=== PATIENT | male | born 1945 | race Caucasian/White ===

== ENCOUNTER 2024-07-05 18:51 | Inpatient (IN) | payer MEDICARE ==
[2024-07-05] MEDS ORDERED: Calcium Chloride 1 GM/10 ML Abboject SYRINGE ONE (18:54)
[2024-07-05] MEDS ORDERED: Sodium Bicarb 50 MEQ/50 ML Abboject 8.4% SYRINGE ONE (18:54)
[2024-07-05] MEDS ORDERED: EPINEPHrine 1 MG/10 ML Abboject SYRINGE ONE (18:54)
[2024-07-05] MEDS ORDERED: Lidocaine 2% PF 100 mg/5 ml Syringe ONE (18:54)
[2024-07-05] MEDS ORDERED: Magnesium 2 GM/50 ML BAG (IN WATER) ONE (19:10)
[2024-07-05] MEDS ORDERED: fentaNYL 50 mcg/mL 1 mL Vial ONE ×2 (19:13→20:42)
[2024-07-05 19:23] LABS: Hematocrit 47.1 % (42.0-52.0); Hemoglobin 14.9 g/dL (14.0-18.0); Mean Corpuscular HGB CONC 31.6 g/dL (32.0-36.0); Mean Corpuscular Hemoglobin 30.5 pg (27.0-31.0); Mean Corpuscular Volume 96.3 fL (78.0-98.0); Mean Platelet Volume 11.2 fL (7.4-10.4); Platelet Count 172 10x3/uL (130-400); RBC Distribution Width 13.1 % (11.5-14.5); Red Blood Cell (RBC) Count 4.89 mill/uL (4.70-6.10)
[2024-07-05 19:36] LABS: INR-International Normal Ratio 1.3; PTT 51.9 sec (22.9-36.1); Prothrombin Time 16.2 sec (12.0-14.7)
[2024-07-05 19:37] LABS: Acetaminophen Less than 10 mcg/mL (Less than 10); Alcohol Less than 10.0 mg/dL (Less than 10); Salicylate Less than 8.0 mg/dL (Less than 8.0)
[2024-07-05 19:38] LABS: Actual Bicarbonate (HCO3a) 17.9 mEq/L (22-28); Analyzer IN Cardio ER; Base Excess (BEa) -9.4 mEq/L (-2.0 to +3.0); Calcium, Ionized (arterial) 1.43 mmol/L (1.12-1.30); Carboxyhemoglobin (COHb) 0.6 gm% (0.0-3.0); Hematocrit-ABG 43 % (42.0-52.0); Hemoglobin (Hb) 14.6 g/dL (14.0-18.0); pH, Arterial 7.228 (7.35-7.45)
[2024-07-05 19:42] LABS: Troponin I 0.031 ng/mL (< 0.028)
[2024-07-05 19:47] LABS: Band 2 % (5-11); Burr Cells SLIGHT = 2-5 cells HPF (0-1); Eosinophils 2 % (0-10); Lymphocytes 77 % (21-51); Monocytes 5 % (0-10); Neutrophil 12 % (42-75); Nucleated RBC (Manual Ct) 1 % (0); Platelet Adequacy Comment Platelets Normal; Reactive Lymphocytes 1 % (0-10); Smudge Cells 43.6 %
[2024-07-05 19:50] LABS: Puncture Site Right Brachial art
[2024-07-05 19:51] LABS: ALT (SGPT) 107 U/L (8-55); AST (SGOT) 99 U/L (5-34); Albumin 3.4 g/dL (3.4-4.8); Alkaline Phosphatase 73 U/L (40-110); Anion Gap 25 mmol/L (10-20); BUN (Urea Nitrogen) 13 mg/dL (8.4-25.7); Bilirubin, Total 0.4 mg/dL (0.2-1.2); Calc. Creatinine Clearance 0 mL/min (70-130); Calcium 9.1 mg/dL (7.8-10.44); Carbon Dioxide 24 mmol/L (23-31); Chloride 106 mmol/L (98-107); Estimated GFR 49; Globulin 2.4 g/dL (2.4-3.5); Glucose 202 mg/dL (83-110); Magnesium 2.6 mg/dL (1.6-2.6); Potassium 3.7 mmol/L (3.5-5.1); Protein, Total 5.8 g/dL (5.8-8.1); Sodium 151 mmol/L (136-145)
[2024-07-05] MEDS ORDERED: EPINEPHrine 4 MG in Dextrose 5% in Water 250 ML IV SCH (20:45)
[2024-07-05] MEDS ORDERED: Insulin Lispro 100 UNIT/ML 10 ML VIAL SC PRN (20:48)
[2024-07-05 21:15] LABS: Bilirubin Negative (Negative); Blood, Urine 3+ (Negative); CAUTI Indications for Culture Alt mental st,lethar; Clarity Turbid (Clear); Glucose, Urine (Dipstick) 100 mg/dL (Negative); Ketone, Urine Negative (Negative); Leukocyte Negative Leu/uL (Negative); Nitrite Negative (Negative); Protein, Urine (Dipstick) 300 mg/dL (Neg-Trace); RBC/HPF Greater than 50 HPF (0-3); Squamous Epithelial None Seen HPF (0-3); Urobilinogen Normal mg/dL (Less than 2); pH, Urine 6.5 (5.0-9.0)
[2024-07-05 21:16] LABS: Bacteria/HPF Rare-Few HPF (None Seen)
[2024-07-05 21:18] LABS: Urine Culture Reflex Yes Yes
[2024-07-05 21:19] LABS: Amphetamine Not Detected (NotDetected); Barbiturates Screen Not Detected (NotDetected); Benzodiazepine Screen Not Detected (NotDetected); Cocaine Metabolite Screen Not Detected (NotDetected); Methadone Not Detected (NotDetected); Methamphetamine Not Detected (NotDetected); Opiate Screen Not Detected (NotDetected); Oxycodone Screen Not Detected (NotDetected); Phencyclidine (PCP) Not Detected (NotDetected); THC/Cannabinoid Screen Not Detected (NotDetected); Tricyclic Screen Not Detected (NotDetected)
[2024-07-05 21:24] LABS: Magnesium 4.4 mg/dL (1.6-2.6); Phosphorus 10.9 mg/dL (2.3-4.7)
[2024-07-05 21:28] LABS: Hemoglobin A1c 5.9 % (4.0-6.0)
[2024-07-05] MEDS: Magnesium Sulfate In Water 4 GM in Premix 1 BAG IVPB SCH (22:40)
[2024-07-05] MEDS ORDERED: Propofol 1,000 MG/100 ML VIAL IV ONE (23:03)
[2024-07-05 23:23] VITALS: BMI 34.2
[2024-07-05] MEDS ORDERED: Electrolyte Replacement Protocol 1 EACH FS PRN (23:37)
[2024-07-06 00:42] LABS: Lactic Acid 4.45 mmol/L (0.5-2.2); Troponin I 5.919 ng/mL (< 0.028)
[2024-07-06 00:49] LABS: ALT (SGPT) 289 U/L (8-55); AST (SGOT) 362 U/L (5-34); Albumin 3.7 g/dL (3.4-4.8); Alkaline Phosphatase 99 U/L (40-110); Anion Gap 18 mmol/L (10-20); BUN (Urea Nitrogen) 19 mg/dL (8.4-25.7); Bilirubin, Total 0.9 mg/dL (0.2-1.2); Calc. Creatinine Clearance 50 mL/min (70-130); Calcium 10.3 mg/dL (7.8-10.44); Carbon Dioxide 22 mmol/L (23-31); Chloride 106 mmol/L (98-107); Estimated GFR 36; Globulin 2.2 g/dL (2.4-3.5); Glucose 343 mg/dL (83-110); Potassium 3.6 mmol/L (3.5-5.1); Protein, Total 5.9 g/dL (5.8-8.1); Sodium 142 mmol/L (136-145)
[2024-07-06] MEDS ORDERED: Lactated Ringer's 500 ML IV SCH (01:15)
[2024-07-06] MEDS ORDERED: Morphine 2 MG/ML VIAL SLOW IVP PRN (02:15)
[2024-07-06] MEDS ORDERED: Fentanyl BOLUS 250 ML IVPB PRN (02:15)
[2024-07-06] MEDS ORDERED: Propofol BOLUS 1,000 MG/100 ML VIAL IV PRN (02:15)
[2024-07-06] MEDS ORDERED: DISCONTINUE PREVIOUS NARCOTIC PAIN MEDICATIONS AND BENZODIAZEPINES FS SCH (02:15)
[2024-07-06 02:23] LABS: Troponin I 11.923 ng/mL (< 0.028)
[2024-07-06] MEDS: Amiodarone 450 MG in Dextrose 5% in Water 250 ML IVPB SCH (02:48)
[2024-07-06] MEDS: Ventilator Sedation Protocol 1 EACH FS ONE (02:48)
[2024-07-06] MEDS: Lorazepam 2 MG/ML VIAL ONE (02:48)
[2024-07-06 05:22] LABS: Hematocrit 47.1 % (42.0-52.0); Hemoglobin 15.1 g/dL (14.0-18.0); Mean Corpuscular HGB CONC 32.1 g/dL (32.0-36.0); Mean Corpuscular Hemoglobin 30.4 pg (27.0-31.0); Mean Platelet Volume 11.2 fL (7.4-10.4); Platelet Count 223 10x3/uL (130-400); RBC Distribution Width 13.2 % (11.5-14.5); Red Blood Cell (RBC) Count 4.96 mill/uL (4.70-6.10)
[2024-07-06 05:32] LABS: ALT (SGPT) 247 U/L (8-55); AST (SGOT) 284 U/L (5-34); Albumin 3.4 g/dL (3.4-4.8); Alkaline Phosphatase 79 U/L (40-110); Anion Gap 19 mmol/L (10-20); BUN (Urea Nitrogen) 22 mg/dL (8.4-25.7); Bilirubin, Total 1.1 mg/dL (0.2-1.2); Calc. Creatinine Clearance 40 mL/min (70-130); Carbon Dioxide 22 mmol/L (23-31); Chloride 105 mmol/L (98-107); Estimated GFR 28; Globulin 2.3 g/dL (2.4-3.5); Glucose 322 mg/dL (83-110); Magnesium 4.6 mg/dL (1.6-2.6); Potassium 3.4 mmol/L (3.5-5.1); Protein, Total 5.7 g/dL (5.8-8.1); Sodium 143 mmol/L (136-145)
[2024-07-06] MEDS: Insulin Lispro 100 UNIT/ML 10 ML VIAL SC PRN ×2 (05:56→11:50)
[2024-07-06 06:02] LABS: Band 36 % (5-11); Lymphocytes 3 % (21-51); Monocytes 8 % (0-10); Neutrophil 54 % (42-75); Platelet Adequacy Comment Platelets Normal; RBC Morphology Within Normal Limits
[2024-07-06] MEDS: Heparin 25,000 units/D5W 500 ML IVPB SCH (06:10)
[2024-07-06] MEDS: Heparin 10,000 UNITS/ 10 ML VIAL SLOW IVP SCH (06:18)
[2024-07-06] MEDS: Potassium Chloride 20 MEQ in Premix 1 BAG IVPB SCH (08:13)
[2024-07-06] MEDS: Pantoprazole 40 MG VIAL IVP SCH (08:13)
[2024-07-06 08:28] LABS: Troponin I 13.829 ng/mL (< 0.028)
[2024-07-06 08:30] LABS: Actual Bicarbonate (HCO3a) 17.3 mEq/L (22-28); Base Excess (BEa) -6.8 mEq/L (-2.0 to +3.0); CO2 Tension 31.2 mmHg (35.0-45.0); Calcium, Ionized (arterial) 1.26 mmol/L (1.12-1.30); Carboxyhemoglobin (COHb) 1.5 gm% (0.0-3.0); Hematocrit-ABG 46 % (42.0-52.0); Hemoglobin (Hb) 15.7 g/dL (14.0-18.0); O2 Tension (PaO2), arterial 62.1 mmHg (> 60.0); Potassium - ABG Lab 3.55 mmol/L (3.70-5.30); pH, Arterial 7.361 (7.35-7.45)
[2024-07-06 08:34] LABS: Puncture Site Left Brachial artery
[2024-07-06] MEDS ORDERED: Enoxaparin 40 MG (0.4 mL) SYRINGE SC SCH (09:00)
[2024-07-06] MEDS ORDERED: Heparin 5,000 UNITS/ML VIAL SC SCH (09:00)
[2024-07-06] MEDS: FLU (Fluad Triv) TS24-25 (65UP)/MF59C/PF 45 MCG/0.5 ML Syringe IM ONE (10:23)
[2024-07-06] MEDS: Aspirin 81 mg Enteric Coated Tablet PO SCH (10:23)
[2024-07-06] MEDS: Atorvastatin Calcium 40 MG TAB PO SCH (10:23)
[2024-07-06] MEDS: NOREPINEPHRINE 8 MG/250 ML-D5W 250 ML IVPB SCH (10:30)
[2024-07-06] MEDS: Lactated Ringer's 1,000 ML IV SCH (14:06)
[2024-07-06 15:14] LABS: Potassium 4.2 mmol/L (3.5-5.1)
[2024-07-06 16:10] LABS: PTT 206.8 sec (22.9-36.1)
[2024-07-07] MEDS: Propofol 1,000 MG/100 ML VIAL IV PRN (00:09)
[2024-07-07] MEDS: Fentanyl CADD 100 ML IV SCH (01:39)
[2024-07-07] MEDS: Lidocaine 2 gm/D5W 500 ml 500 ML IVPB SCH (03:26)
[2024-07-07 04:35] LABS: Hematocrit 42.3 % (42.0-52.0); Mean Corpuscular HGB CONC 33.1 g/dL (32.0-36.0); Mean Corpuscular Hemoglobin 30.4 pg (27.0-31.0); Mean Corpuscular Volume 91.8 fL (78.0-98.0); Mean Platelet Volume 11.7 fL (7.4-10.4); Platelet Count 192 10x3/uL (130-400); RBC Distribution Width 13.7 % (11.5-14.5); Red Blood Cell (RBC) Count 4.61 mill/uL (4.70-6.10)
[2024-07-07 04:56] LABS: ALT (SGPT) 142 U/L (8-55); AST (SGOT) 101 U/L (5-34); Albumin 2.6 g/dL (3.4-4.8); Alkaline Phosphatase 59 U/L (40-110); Anion Gap 16 mmol/L (10-20); BUN (Urea Nitrogen) 34 mg/dL (8.4-25.7); Bilirubin, Total 0.7 mg/dL (0.2-1.2); Calc. Creatinine Clearance 37 mL/min (70-130); Calcium 8.8 mg/dL (7.8-10.44); Carbon Dioxide 22 mmol/L (23-31); Chloride 100 mmol/L (98-107); Estimated GFR 25; Globulin 2.3 g/dL (2.4-3.5); Glucose 202 mg/dL (83-110); Magnesium 2.7 mg/dL (1.6-2.6); Phosphorus 2.4 mg/dL (2.3-4.7); Protein, Total 4.9 g/dL (5.8-8.1); Sodium 134 mmol/L (136-145)
[2024-07-07 05:26] LABS: Band 20 % (5-11); Burr Cells SLIGHT = 2-5 cells HPF (0-1); Lymphocytes 15 % (21-51); Metamyelocyte 2 % (0-0); Microcytosis SLIGHT = 6-15 cells HPF (0-5); Monocytes 6 % (0-10); Neutrophil 57 % (42-75); Ovalocytes SLIGHT = 2-5 cells HPF (0-1); Platelet Adequacy Comment Platelets Normal; Poikilocytosis SLIGHT = 6-15 cells HPF (0-5)
[2024-07-07] MEDS: Aspirin 81 mg Enteric Coated Tablet PO SCH (08:57)
[2024-07-07] MEDS: Atorvastatin Calcium 40 MG TAB PO SCH (08:57)
[2024-07-07] MEDS: Acetaminophen 650 MG Suppository PR PRN (09:03)
[2024-07-07] MEDS ORDERED: Acetaminophen 500 MG TAB PO PRN (09:57)
[2024-07-07] MEDS ORDERED: Acetaminophen 500 MG TAB PO SCH (10:00)
[2024-07-07 11:05] LABS: Lactic Acid 3.13 mmol/L (0.5-2.2)
[2024-07-07] MEDS: Furosemide 40 MG (4 mL) VIAL SLOW IVP SCH (12:18)
[2024-07-07 12:39] VITALS: BMI 34.2
[2024-07-07 12:47] LABS: Troponin I 3.853 ng/mL (< 0.028)
[2024-07-07] MEDS ORDERED: Furosemide 40 MG (4 mL) VIAL SLOW IVP SCH (21:00)
[2024-07-08] MEDS: Acetaminophen 500 MG TAB PER TUBE PRN (00:31)
[2024-07-08 04:37] LABS: Hemoglobin 12.8 g/dL (14.0-18.0); Mean Corpuscular HGB CONC 32.8 g/dL (32.0-36.0); Mean Corpuscular Hemoglobin 30.5 pg (27.0-31.0); Mean Corpuscular Volume 92.9 fL (78.0-98.0); Mean Platelet Volume 10.8 fL (7.4-10.4); Platelet Count 144 10x3/uL (130-400); RBC Distribution Width 13.6 % (11.5-14.5)
[2024-07-08 04:52] LABS: ALT (SGPT) 81 U/L (8-55); AST (SGOT) 54 U/L (5-34); Albumin 2.1 g/dL (3.4-4.8); Alkaline Phosphatase 44 U/L (40-110); Anion Gap 15 mmol/L (10-20); BUN (Urea Nitrogen) 43 mg/dL (8.4-25.7); Bilirubin, Total 1.2 mg/dL (0.2-1.2); Calc. Creatinine Clearance 34 mL/min (70-130); Calcium 7.7 mg/dL (7.8-10.44); Carbon Dioxide 22 mmol/L (23-31); Chloride 98 mmol/L (98-107); Estimated GFR 23; Globulin 2.4 g/dL (2.4-3.5); Glucose 220 mg/dL (83-110); Magnesium 2.3 mg/dL (1.6-2.6); Phosphorus 3.6 mg/dL (2.3-4.7); Potassium 3.7 mmol/L (3.5-5.1); Protein, Total 4.5 g/dL (5.8-8.1); Sodium 131 mmol/L (136-145)
[2024-07-08 05:07] LABS: Band 33 % (5-11); Burr Cells SLIGHT = 2-5 cells HPF (0-1); Dohle Bodies SLIGHT; Large Platelets 1.8 % (0-5); Lymphocytes 28 % (21-51); Metamyelocyte 5 % (0-0); Monocytes 6 % (0-10); Myelocyte 5 % (0-0); Neutrophil 23 % (42-75); Ovalocytes SLIGHT = 2-5 cells HPF (0-1); Platelet Adequacy Comment Platelets Normal; Poikilocytosis SLIGHT = 6-15 cells HPF (0-5); Polychromasia SLIGHT = 2-3 cells HPF (0-2); Schistocytes SLIGHT = 2-5 cells HPF (0-1); Target Cells SLIGHT = 2-5 cells HPF (0-1); Toxic Granulation SLIGHT; Vacuoles SLIGHT
[2024-07-08] MEDS: Heparin 5,000 UNITS/ML VIAL SC SCH (08:34)
[2024-07-08 09:30] LABS: Lactic Acid 3.39 mmol/L (0.5-2.2)
[2024-07-08] MEDS ORDERED: Vasopressin 20 UNITS in Sodium Chloride 0.9% 50 ML IV PRN (09:38)
[2024-07-08] MEDS: Amiodarone 200 MG TAB PO SCH (10:19)
[2024-07-08] MEDS: Vasopressin In 0.9 % NaCl 40 UNIT in Premix 1 BAG IV SCH (11:50)
[2024-07-08] MEDS: Lorazepam 2 MG/ML VIAL SLOW IVP PRN (12:53)
[2024-07-08 17:16] LABS: Base Excess (BEa) -1.4 mEq/L (-2.0 to +3.0); CO2 Tension 37.5 mmHg (35.0-45.0); Calcium, Ionized (arterial) 1.09 mmol/L (1.12-1.30); Carboxyhemoglobin (COHb) 1.1 gm% (0.0-3.0); Hematocrit-ABG 41 % (42.0-52.0); Hemoglobin (Hb) 14.1 g/dL (14.0-18.0); Potassium - ABG Lab 3.97 mmol/L (3.70-5.30); pH, Arterial 7.405 (7.35-7.45)
[2024-07-08 17:20] LABS: ALV-art Gradient 392.425 mmHg (0-20); O2 Tension (PaO2), arterial 59.8 mmHg (> 60.0); Puncture Site Right Radial artery
[2024-07-08] MEDS: Furosemide 20 MG (2 mL) VIAL SLOW IVP SCH (17:53)
[2024-07-08] MEDS: Senokot S 8.6-50 MG TAB PO SCH (19:23)
[2024-07-09] MEDS: DOBUTamine 500 mg/250 ml 250 ML ONE (00:25)
[2024-07-09 04:09] LABS: Hemoglobin 12.6 g/dL (14.0-18.0); Mean Corpuscular HGB CONC 33.2 g/dL (32.0-36.0); Mean Corpuscular Hemoglobin 29.8 pg (27.0-31.0); Mean Corpuscular Volume 89.8 fL (78.0-98.0); Mean Platelet Volume 11.7 fL (7.4-10.4); Platelet Count 140 10x3/uL (130-400); RBC Distribution Width 13.6 % (11.5-14.5); Red Blood Cell (RBC) Count 4.23 mill/uL (4.70-6.10)
[2024-07-09 04:22] LABS: ALT (SGPT) 64 U/L (8-55); AST (SGOT) 43 U/L (5-34); Alkaline Phosphatase 42 U/L (40-110); Anion Gap 16 mmol/L (10-20); BUN (Urea Nitrogen) 52 mg/dL (8.4-25.7); Bilirubin, Total 1.3 mg/dL (0.2-1.2); Calc. Creatinine Clearance 37 mL/min (70-130); Calcium 8.3 mg/dL (7.8-10.44); Carbon Dioxide 23 mmol/L (23-31); Chloride 97 mmol/L (98-107); Estimated GFR 25; Globulin 3.4 g/dL (2.4-3.5); Glucose 224 mg/dL (83-110); Potassium 3.8 mmol/L (3.5-5.1); Protein, Total 5.4 g/dL (5.8-8.1); Sodium 132 mmol/L (136-145)
[2024-07-09 04:33] LABS: Band 41 % (5-11); Burr Cells SLIGHT = 2-5 cells HPF (0-1); Dohle Bodies SLIGHT; Large Platelets 4.3 % (0-5); Lymphocytes 15 % (21-51); Metamyelocyte 17 % (0-0); Microcytosis SLIGHT = 6-15 cells HPF (0-5); Monocytes 4 % (0-10); Myelocyte 1 % (0-0); Neutrophil 22 % (42-75); Nucleated RBC (Manual Ct) 2 % (0); Ovalocytes SLIGHT = 2-5 cells HPF (0-1); Platelet Adequacy Comment Platelets Decreased; Poikilocytosis MODERATE=16-30 cells HPF (0-5); Polychromasia SLIGHT = 2-3 cells HPF (0-2); Reflex for Review?? YES; Toxic Granulation MODERATE; Vacuoles SLIGHT
[2024-07-09] MEDS: Polyethylene Glycol 3350 17 GM Packet PER TUBE SCH (08:42)
[2024-07-09] MEDS: Furosemide 20 MG (2 mL) VIAL SLOW IVP SCH (12:00)
[2024-07-09 12:54] LABS: Magnesium 2.6 mg/dL (1.6-2.6)
[2024-07-10 04:45] LABS: ALT (SGPT) 18 U/L (8-55); AST (SGOT) 34 U/L (5-34); Albumin 1.8 g/dL (3.4-4.8); Alkaline Phosphatase 37 U/L (40-110); Anion Gap 13 mmol/L (10-20); BUN (Urea Nitrogen) 19 mg/dL (8.4-25.7); Bilirubin, Total 1.3 mg/dL (0.2-1.2); Calc. Creatinine Clearance 85 mL/min (70-130); Calcium 7.4 mg/dL (7.8-10.44); Carbon Dioxide 23 mmol/L (23-31); Chloride 107 mmol/L (98-107); Estimated GFR 69; Globulin 2.3 g/dL (2.4-3.5); Glucose 268 mg/dL (83-110); Potassium 3.6 mmol/L (3.5-5.1); Protein, Total 4.1 g/dL (5.8-8.1); Sodium 139 mmol/L (136-145)
[2024-07-10 05:17] LABS: Hematocrit 34.9 % (42.0-52.0); Hemoglobin 11.9 g/dL (14.0-18.0); Mean Corpuscular HGB CONC 34.1 g/dL (32.0-36.0); Mean Corpuscular Hemoglobin 30.2 pg (27.0-31.0); Mean Corpuscular Volume 88.6 fL (78.0-98.0); Mean Platelet Volume 11.2 fL (7.4-10.4); Platelet Count 148 10x3/uL (130-400); RBC Distribution Width 13.7 % (11.5-14.5); Red Blood Cell (RBC) Count 3.94 mill/uL (4.70-6.10)
[2024-07-10 05:46] LABS: Anisocytosis SLIGHT = 6-15 cells HPF (0-5); Band 30 % (5-11); Burr Cells MODERATE= 6-15 cells HPF (0-1); Dohle Bodies SLIGHT; Eosinophils 1 % (0-10); Large Platelets 6.2 % (0-5); Lymphocytes 12 % (21-51); Metamyelocyte 12 % (0-0); Microcytosis SLIGHT = 6-15 cells HPF (0-5); Monocytes 5 % (0-10); Myelocyte 6 % (0-0); Neutrophil 33 % (42-75); Platelet Adequacy Comment Platelets Normal; Poikilocytosis SLIGHT = 6-15 cells HPF (0-5); Polychromasia SLIGHT = 2-3 cells HPF (0-2); Reactive Lymphocytes 2 % (0-10); Toxic Granulation MODERATE; Vacuoles SLIGHT
[2024-07-10] MEDS: Pantoprazole DR 40 MG TAB PO SCH (08:26)
[2024-07-10] MEDS ORDERED: VANCOMYCIN IVPB PRN (09:53)
[2024-07-10] MEDS: Cefepime 2 GM in Sodium Chloride 0.9% 100 ML IVPB SCH (11:30)
[2024-07-10] MEDS: Vancomycin (BATCH) 2.5 GM in Premix 1 BAG IVPB SCH (12:30)
[2024-07-10] MEDS: Vancomycin 1 GM in Premix 1 BAG IVPB SCH ×2 (12:35→23:54)
[2024-07-10 12:58] LABS: Actual Bicarbonate (HCO3a) 24.6 mEq/L (22-28); Base Excess (BEa) -0.6 mEq/L (-2.0 to +3.0); CO2 Tension 42.4 mmHg (35.0-45.0); Calcium, Ionized (arterial) 1.12 mmol/L (1.12-1.30); Carboxyhemoglobin (COHb) 0.8 gm% (0.0-3.0); Hematocrit-ABG 37 % (42.0-52.0); Hemoglobin (Hb) 12.6 g/dL (14.0-18.0); Potassium - ABG Lab 3.38 mmol/L (3.70-5.30); pH, Arterial 7.381 (7.35-7.45)
[2024-07-10 13:07] LABS: O2 Tension (PaO2), arterial 49.3 mmHg (> 60.0); Puncture Site Right Brachial art
[2024-07-10] MEDS: Amiodarone 200 MG TAB PER TUBE SCH (14:30)
[2024-07-10] MEDS: Furosemide 20 MG (2 mL) VIAL SLOW IVP SCH (16:59)
[2024-07-11 05:43] LABS: Vancomycin, Random 40.2 ug/mL (See Comment)
[2024-07-11 05:47] LABS: Hematocrit 33.9 % (42.0-52.0); Hemoglobin 11.4 g/dL (14.0-18.0); Mean Corpuscular HGB CONC 33.6 g/dL (32.0-36.0); Mean Corpuscular Hemoglobin 30.2 pg (27.0-31.0); Mean Corpuscular Volume 89.7 fL (78.0-98.0); Mean Platelet Volume 11.2 fL (7.4-10.4); Platelet Count 142 10x3/uL (130-400); RBC Distribution Width 14.6 % (11.5-14.5); Red Blood Cell (RBC) Count 3.78 mill/uL (4.70-6.10)
[2024-07-11 06:12] LABS: Anisocytosis SLIGHT = 6-15 cells HPF (0-5); Band 43 % (5-11); Burr Cells SLIGHT = 2-5 cells HPF (0-1); Dohle Bodies SLIGHT; Large Platelets 3.2 % (0-5); Lymphocytes 8 % (21-51); Metamyelocyte 13 % (0-0); Microcytosis SLIGHT = 6-15 cells HPF (0-5); Myelocyte 2 % (0-0); Neutrophil 33 % (42-75); Platelet Adequacy Comment Platelets Normal; Poikilocytosis MODERATE=16-30 cells HPF (0-5); Polychromasia SLIGHT = 2-3 cells HPF (0-2); Promyelocytes 1 % (0-0); Toxic Granulation MODERATE; Vacuoles MODERATE
[2024-07-11 06:30] LABS: ALT (SGPT) 39 U/L (8-55); AST (SGOT) 53 U/L (5-34); Albumin 1.5 g/dL (3.4-4.8); Alkaline Phosphatase 40 U/L (40-110); Anion Gap 18 mmol/L (10-20); BUN (Urea Nitrogen) 66 mg/dL (8.4-25.7); Calc. Creatinine Clearance 42 mL/min (70-130); Calcium 8.7 mg/dL (7.8-10.44); Carbon Dioxide 23 mmol/L (23-31); Chloride 100 mmol/L (98-107); Estimated GFR 30; Globulin 4.1 g/dL (2.4-3.5); Glucose 157 mg/dL (83-110); Potassium 3.7 mmol/L (3.5-5.1); Protein, Total 5.6 g/dL (5.8-8.1); Sodium 137 mmol/L (136-145)
[2024-07-11 08:07] VITALS: BP 115/67
[2024-07-11 08:18] LABS: Actual Bicarbonate (HCO3a) 24.7 mEq/L (22-28); Base Excess (BEa) -1.1 mEq/L (-2.0 to +3.0); CO2 Tension 44.8 mmHg (35.0-45.0); Calcium, Ionized (arterial) 1.14 mmol/L (1.12-1.30); Carboxyhemoglobin (COHb) 1.2 gm% (0.0-3.0); Hematocrit-ABG 48 % (42.0-52.0); Hemoglobin (Hb) 16.3 g/dL (14.0-18.0); Potassium - ABG Lab 3.78 mmol/L (3.70-5.30); pH, Arterial 7.359 (7.35-7.45)
[2024-07-11 08:20] LABS: O2 Tension (PaO2), arterial 54.2 mmHg (> 60.0); Puncture Site Right Radial artery
[2024-07-11] MEDS: Aspirin Chewable 81 MG TAB PER TUBE SCH (09:19)
[2024-07-11] MEDS: Lansoprazole 30 MG/10 ML UDCUP PER TUBE SCH (09:36)
[2024-07-11 10:04] VITALS: TEMP 97.8
[2024-07-11] MEDS ORDERED: Lorazepam 2 MG/ML VIAL SLOW IVP PRN (10:37)
[2024-07-11] MEDS ORDERED: Morphine 4 MG/ML VIAL SLOW IVP PRN (10:37)
[2024-07-11] MEDS ORDERED: Glycopyrrolate 0.2 MG/ML 5 ML SYRINGE SLOW IVP PRN (10:41)
[2024-07-11] MEDS ORDERED: Acetaminophen 650 MG Suppository PR PRN (10:41)
[2024-07-11] MEDS: Morphine 4 MG/ML VIAL SLOW IVP PRN (11:03)
[2024-07-11] MEDS: Lorazepam 2 MG/ML VIAL SLOW IVP PRN (11:09)
[2024-07-11] MEDS ORDERED: Vancomycin HCl 500 MG in Sodium Chloride 0.9% 100 ML IVPB SCH (23:59)
[2024-07-12] MEDS ORDERED: Lansoprazole 30 MG/10 ML UDCUP PER TUBE SCH (09:00)
== END 2024-07-11 11:38 | disposition expired | DRG 207 ==
LOC: ERS 18:51 → ERHOLD 20:17 → CCU 07-06 00:32
PROVIDERS: ADMIT Emergency Medicine; ATTEND Emergency Medicine
PROC: 0T9B70Z Drainage of Bladder with Drainage Device, Via Natural or Artificial Opening (ICD-10-PCS; 2024-07-05)
PROC: 0D9670Z Drainage of Stomach with Drainage Device, Via Natural or Artificial Opening (ICD-10-PCS; 2024-07-05)
PROC: 06HY33Z Insertion of Infusion Device into Lower Vein, Percutaneous Approach (ICD-10-PCS; 2024-07-05)
PROC: 3E043XZ Introduction of Vasopressor into Central Vein, Percutaneous Approach (ICD-10-PCS; 2024-07-05)
PROC: 4A133R1 Monitoring of Arterial Saturation, Peripheral, Percutaneous Approach (ICD-10-PCS; 2024-07-05)
PROC: 3E033XZ Introduction of Vasopressor into Peripheral Vein, Percutaneous Approach (ICD-10-PCS; 2024-07-05)
PROC: 0BH17EZ Insertion of Endotracheal Airway into Trachea, Via Natural or Artificial Opening (ICD-10-PCS; 2024-07-08)
PROC: 5A1955Z Respiratory Ventilation, Greater than 96 Consecutive Hours (ICD-10-PCS; principal; 2024-07-10)
PROC: 3E03329 Introduction of Other Anti-infective into Peripheral Vein, Percutaneous Approach (ICD-10-PCS; 2024-07-10)
DX: J96.01 Acute respiratory failure with hypoxia (principal); G93.41 Metabolic encephalopathy; E87.0 Hyperosmolality and hypernatremia; E87.20 Acidosis, unspecified; N17.9 Acute kidney failure, unspecified; I47.10 Supraventricular tachycardia, unspecified; I42.9 Cardiomyopathy, unspecified; Z66 Do not resuscitate; Z51.5 Encounter for palliative care; I46.9 Cardiac arrest, cause unspecified; I25.10 Atherosclerotic heart disease of native coronary artery without angina pectoris; R57.0 Cardiogenic shock; D72.829 Elevated white blood cell count, unspecified; R79.89 Other specified abnormal findings of blood chemistry; Z87.891 Personal history of nicotine dependence
CPT/HCPCS: 36415; 36416; 36556; 36600; 51702; 70450; 71045; 80053; 80202; 80306; 80307; 81001; 82805; 83036; 83605; 83735; 83880; 84100; 84443; 84484; 85025; 85060; 85610; 85730; 86850; 86900; 86901; 87040; 87077; 87086; 87149; 87186; 90653; 92950; 93005; 93010; 93306; 94002; 94003; 96365; 96366; 96368; 97139; 99292; J0171; J0282; J0692; J1644; J1815; J1940; J2001; J2002; J2060; J2272; J2470; J2704; J3010; J3370; J3370-JW; J3475; J3480; J7070; J7120